=== PATIENT | male | born 1990 | race Caucasian/White ===

== ENCOUNTER 2016-03-30 20:55 | Emergency (ER) | payer SELFPAY ==
[~2016-03-30] VITALS: Ht 180.3 cm; Wt 91.6 kg
[~2016-03-30 20:55] MED LIST: ACETAMINOPHEN500 MG PO; CLARITIN,ALAVAR10 MG PO; COGENTIN0.5 MG PO; FLONASE16 G1 BOTH NARES; LORATADINE10 M2 PO; MOBIC15 MG PO; MOTRIN600 MG PO; MOTRIN800 MG PO; NORCO 5/3251 TABLET PO; SINGULAIR10 MG PO
[2016-03-30 21:54] VITALS: BP 143/81
== END 2016-03-30 21:56 | disposition home or self-care (01) ==
LOC: EME 20:55
DX: H20.012 Primary iridocyclitis, left eye (principal); Z87.891 Personal history of nicotine dependence
CPT/HCPCS: 99281; 99284

== ENCOUNTER 2016-06-26 11:11 | Emergency (ER) | payer SELFPAY ==
[~2016-06-26] VITALS: Ht 180.3 cm; Wt 94.3 kg
[2016-06-26] MEDS ORDERED: BACTRIM,SEPT1 TABLET PO (15:05)
[2016-06-26] MEDS ORDERED: NORCO 5/3251 TABLET PO (15:08)
[2016-06-26 15:40] VITALS: BP 129/72
== END 2016-06-26 15:43 | disposition home or self-care (01) ==
LOC: EME 11:11
PROC: 0H96XZZ Drainage of Back Skin, External Approach (ICD-10-PCS; principal; 2016-06-26)
DX: L05.91 Pilonidal cyst without abscess (principal); Z86.14 Personal history of Methicillin resistant Staphylococcus aureus infection; F17.200 Nicotine dependence, unspecified, uncomplicated
CPT/HCPCS: 87070; 87075; 87076; 87205; 99281; 99284

== ENCOUNTER 2017-05-11 03:37 | Emergency (ER) | payer OTHER ==
[~2017-05-11] VITALS: Ht 180.3 cm; Wt 91.0 kg
[~2017-05-11 03:37] MED LIST changes: +BACTRIM,SEPT1 TABLET PO
[2017-05-11 04:01] LABS: APPEARANCE CLEAR ((CLEAR)); BILIRUBIN NEGATIVE; BLOOD NEGATIVE; COLOR YELLOW ((YELLOW)); GLUCOSE (STRIP) NEGATIVE; KETONES NEGATIVE; LEUKOCYTES NEGATIVE; NITRITE NEGATIVE; PROTEIN (STRIP) NEGATIVE; SPECIFIC GRAVITY 1.006 (1.000-1.030); UROBILINOGEN 0.2 MG/DL (0.2-1.0)
[2017-05-11 04:22] LABS: AMPHETAMINE NEGATIVE (500 ng/mL); BARBITURATES NEGATIVE (200 ng/mL); BENZODIAZEPINES NEGATIVE (150 ng/mL); BUPRENORPHINE NEGATIVE (10 ng/mL); COCAINE NEGATIVE (150 ng/mL); METHADONE NEGATIVE (200 ng/mL); METHAMPHETAMINE NEGATIVE (500 ng/mL); OPIATES (MORPHINE) NEGATIVE (100 ng/mL); OXYCODONE NEGATIVE (100 ng/mL); PHENCYCLIDINE NEGATIVE (25 ng/mL); PROPOXYPHENE NEGATIVE (300 ng/mL); THC CANNABINOIDS NEGATIVE (50 ng/mL); TRICYCLIC ANTIDEPRESSANTS NEGATIVE (300 ng/mL)
[2017-05-11 04:32] LABS: HEMATOCRIT 44.8 % (38.0-50.0); HEMOGLOBIN 16.2 G/DL (12.5-16.6); MCH 30.3 PG (29.0-34.0); MCHC 36.2 G/DL (30.0-36.0); MCV 83.7 FL (86-99); PLATELET COUNT 241 K/uL (156-360); RBC DIS.WIDTH-CV 12.2 % (11.8-14.6); RED BLOOD COUNT 5.35 M/uL (4.00-5.50); WHITE BLOOD COUNT 9.5 K/uL (4.1-10.2)
[2017-05-11 04:42] LABS: ALBUMIN 4.6 g/dL (3.2-4.8)
[2017-05-11 04:43] LABS: CHLORIDE 109 mEq/L (99-109); POTASSIUM 3.7 mEq/L (3.7-5.4); SODIUM 143 mEq/L (136-147)
[2017-05-11 04:45] LABS: GLUCOSE 93 mg/dL (70-99); TOTAL PROTEIN 7.3 g/dL (6.4-8.3)
[2017-05-11 04:47] LABS: TOTAL BILIRUBIN 0.5 mg/dL (0.0-1.0)
[2017-05-11 04:48] LABS: ALKALINE PHOSPHATASE 86 IU/L (3-129); SERUM ETHYL ALCOHOL 144 mg/dL
[2017-05-11 04:49] LABS: CREATININE 0.9 mg/dL (0.6-1.3); GFR ESTIMATE (CALCULATED) > 59 mL/min/ (58.99-99999)
[2017-05-11 04:50] LABS: AST (GOT) 32 IU/L (2-34); UREA NITROGEN (BUN) 10 mg/dL (9-23)
[2017-05-11 04:52] LABS: ALT (GPT) 55 IU/L (3-49)
[2017-05-11 10:23] VITALS: BP 130/71
== END 2017-05-11 10:25 | disposition left against medical advice (07) ==
LOC: EME 03:37
PROVIDERS: Emergency Medicine
DX: R44.0 Auditory hallucinations (principal); F22 Delusional disorders; F10.129 Alcohol abuse with intoxication, unspecified; Y90.6 Blood alcohol level of 120-199 mg/100 ml; S60.222A Contusion of left hand, initial encounter; Z04.6 Encounter for general psychiatric examination, requested by authority; F17.200 Nicotine dependence, unspecified, uncomplicated
CPT/HCPCS: 71045; 73130; 80053; 81003; 85027; 90837; 99281; 99285; G0480